=== PATIENT | female | born 1975 | race Caucasian/White ===

== ENCOUNTER → 2017-10-01 12:29 | Outpatient (CLI) | payer OTHER, SELFPAY ==
[2017-10-01 14:16] LABS: Internal QC Validated? YES +Cl - CLEAR BKGD; Pregnancy, Urine Negative Negative
== END ==
PROVIDERS: Visit Provider Physician Assistant
DX: L70.0 Acne vulgaris (principal); Z79.899 Other long term (current) drug therapy
CPT/HCPCS: 81025

== ENCOUNTER → 2017-11-12 16:37 | Outpatient (CLI) | payer OTHER, SELFPAY ==
[2017-11-12 18:15] LABS: Internal QC Validated? YES +Cl - CLEAR BKGD; Pregnancy, Urine Negative Negative
== END ==
PROVIDERS: Visit Provider Physician Assistant
DX: L70.0 Acne vulgaris (principal); Z79.899 Other long term (current) drug therapy
CPT/HCPCS: 81025

== ENCOUNTER → 2017-12-20 11:38 | Outpatient (CLI) | payer OTHER, SELFPAY ==
[2017-12-20 14:14] LABS: Internal QC Validated? YES +Cl - CLEAR BKGD; Pregnancy, Urine Negative Negative
== END ==
PROVIDERS: Visit Provider Physician Assistant
DX: L70.0 Acne vulgaris (principal); Z79.899 Other long term (current) drug therapy
CPT/HCPCS: 81025

== ENCOUNTER → 2018-01-21 10:21 | Outpatient (CLI) | payer OTHER, SELFPAY ==
[2018-01-21 12:03] LABS: Internal QC Validated? YES +Cl - CLEAR BKGD; Pregnancy, Urine Negative Negative
[2018-01-21 12:09] LABS: Absolute Lymphocyte Count 1.72 X10^3/ul (0.83-4.51); Basophil# 0.02 X10^3/uL; Basophil% 0.2 % (0-1); Eosinophil# 0.11 X10^3/uL; Eosinophils% 1.3 % (0-5); Hematocrit 39.6 % (37-47); Hemoglobin 12.8 g/dl (12.0-15.0); Lymphocyte # 1.72 X10^3/ul (4.0); Lymphocyte % 20.6 % (19-41); Mean Corp Hgb Conc 32.3 g/gl (32-36); Mean Corpuscular Hgb 29.7 pg (27.0-32.0); Mean Corpuscular Volume 91.9 fL (81-99); Mean Platelet Vol. 10.4 fl (6.2-12.0); Monocyte# 0.49 X10^3/uL; Monocyte% 5.9 % (0-10); Neutrophil % 71.9 % (47-70); Platelet Count 259 K/mm3 (150-450); RBC Distribution Width CV 13.4 % (11.6-14.6); RBC Distribution Width SD 44.7 fl (35.1-43.9); Red Blood Count 4.31 M/mm3 (4.2-5.4); White Blood Count 8.4 K/mm3 (4.4-11.0)
[2018-01-21 12:11] LABS: POSITIVE COUNT NO; POSITIVE DIFFERENTIAL NO; POSITIVE MORPHOLOGY NO
[2018-01-21 12:20] LABS: AST(SGOT) 18 U/L (15-37); Alanine Aminotransfer ALT/SGPT 22 U/L (13-56); Albumin, Serum 3.9 g/dL (3.2-5.0); Alkaline Phosphatase 75 U/L (45-117); Anion Gap 7 (5-15); BUN 11 mg/dL (7-18); BUN/Creat Ratio 14.1 RATIO (10-20); Calcium,Total 9.4 mg/dL (8.5-10.1); Chloride 102 mmol/L (98-107); Cholesterol 181 mg/dL (200); Creatinine, Serum 0.78 mg/dL (0.55-1.02); EST Glomerular Filtration Rate 87 mL/min (>60); Est Glom Filt Rate - Afr Amer 105 mL/min (>60); Globulin 4.1 g/dL (2.2-4.2); Glucose 85 mg/dL (74-106); High Density Lipoprotein 54 mg/dL; Potassium 3.9 mmol/L (3.5-5.1); Sodium Level 139 mmol/L (136-145); Triglycerides 92 mg/dL; Very Low Density Lipoprotein 18 mg/dL (5-40)
== END ==
PROVIDERS: Referring Provider Physician Assistant; Visit Provider Physician Assistant
DX: L70.0 Acne vulgaris (principal); Z79.899 Other long term (current) drug therapy
CPT/HCPCS: 36415; 80053; 80061; 81025; 85025

== ENCOUNTER → 2018-02-21 11:16 | Outpatient (CLI) | payer OTHER, SELFPAY ==
[2018-02-21 14:43] LABS: Internal QC Validated? YES +Cl - CLEAR BKGD; Pregnancy, Urine Negative Negative
== END ==
PROVIDERS: Referring Provider Physician Assistant; Visit Provider Physician Assistant
DX: L70.0 Acne vulgaris (principal); Z79.899 Other long term (current) drug therapy
CPT/HCPCS: 81025

== ENCOUNTER → 2018-03-31 11:09 | Outpatient (CLI) | payer OTHER, SELFPAY ==
[2018-03-31 12:16] LABS: Internal QC Validated? YES +Cl - CLEAR BKGD
[2018-03-31 12:24] LABS: Pregnancy, Urine Negative Negative
== END ==
PROVIDERS: Referring Provider Dermatology Pediatric Dermatology; Visit Provider Dermatology Pediatric Dermatology
DX: L70.0 Acne vulgaris (principal)
CPT/HCPCS: 81025

== ENCOUNTER → 2018-05-08 11:10 | Outpatient (CLI) | payer OTHER, SELFPAY ==
[2018-05-08 12:54] LABS: Internal QC Validated? YES +Cl - CLEAR BKGD; Pregnancy, Urine Negative Negative
--- OUTSIDE RECORDS SUMMARY | 2018-07-13 02:36 | XMS RPT_ITS ---
:1975 Author Organization OHIP Care Team Providers Name Role Phone RHONDA SCHMID, ELLE CABA Attending Unavailable LETICIA VELASQUEZ MD Primary Care Unavailable DR. RYLEE NIEVES DO Attending Unavailable LETICIA VELASQUEZ MD Primary Care Unavailable VENTURA KIRKLAND Attending Unavailable VENTURA KIRKLAND Referring Unavailable VENTURA KIRKLAND Primary Care Unavailable Yodit Adair Attending Unavailable Yodit Adair Referring Unavailable VENTURA KIRKLAND Primary Care Unavailable Yodit Adair Attending Unavailable VENTURA KIRKLAND Primary Care Unavailable Yodit Adair Attending Unavailable Adair, Yodit Referring Unavailable Primay Care Physicia, No Primary Care Unavailable Adair, Yodit Attending Unavailable Adair, Yodit Referring Unavailable VENTURA KIRKLAND Primary Care Unavailable Adair, Yodit Attending Unavailable Adair, Yodit Referring Unavailable VENTURA KIRKLAND Primary Care Unavailable Josh, Lisy Attending Unavailable Josh, Lisy Referring Unavailable VENTURA KIRKLAND Primary Care Unavailable PROBLEMS PROBLEMS DATE TYPE CONDITION / CODE ATTENDING STATUS SOURCE 05/08/2018 Unknown L70.0 - Acne VENTURA KIRKLAND Active [place] vulgaris / Community L70.0(ICD-10) Hospital Repository 02/06/2018 Admitting Atypical squamous EZEQUIEL DO, [facility] Diagnosis cells cannot exclude DR. MCKEE [facility] high grade squamous Repository intraepithelial lesion on cytologic smear / R87.611(ICD-10) 01/10/2018 Admitting Encounter for RHONDA CABINET WORKER, [facility] Diagnosis gynecological [facility] examination Repository (general) (routine) without abnormal findings / Z01.419(ICD-10) PROCEDURES PROCEDURES No Procedure Records FoundRESULTS RESULTS ,URINE Collected: 05/08/2018 Status: F Source: [place] 11:19 AM [facility] REPOSITORY TYPE CODE TESTS RESULT OUT OF REFERENCE UNITS RANGE LAB L400.8000 Negative Normal HCGUQUAL Negative Result Comment: Very dilute urine specimens, as indicated by a low specific gravity, may not contain customer service representative levels of hCG. If is still suspected, a first morning urine specimen should be collected 48 hours later and tested. Performed By: #### L400.7600 #### [facility] [address] [place], [place], [address] ,URINE Collected: 03/31/2018 Status: F Source: [place] 11:12 AM [facility] REPOSITORY TYPE CODE TESTS RESULT OUT OF REFERENCE UNITS RANGE LAB L400.8000 Negative Normal HCGUQUAL Negative Result Comment: Very dilute urine specimens, as indicated by a low specific gravity, may not contain customer service representative levels of hCG. If is still suspected, a first morning urine specimen should be collected 48 hours later and tested. Performed By: #### L400.7600 #### [facility] [address] [place], [address] ,URINE Collected: 02/21/2018 Status: F Source: [place] 11:20 AM [facility] REPOSITORY TYPE CODE TESTS RESULT OUT OF REFERENCE UNITS RANGE LAB L400.8000 Negative Normal HCGUQUAL Negative Result Comment: Very dilute urine specimens, as indicated by a low specific gravity, may not contain customer service representative levels of hCG. If is still suspected, a first morning urine specimen should be collected 48 hours later and tested. Performed By: #### L400.7600 #### [facility] [address] [place], [address] PROGRESS Observed: 02/20/2018 Status: COMPLETED Source: [place] 10:18 AM [facility] REPOSITORY HNO ID: [id number] Author: Romie Bennett Service: (none) Author Type: Physician Type: Progress Notes Filed: 02/20/2018 4:17 PM Note Text: SUBJECTIVE Barrington Ochoa is a 42 year old female here today for an annual physical. I reviewed her past medical, surgical, social, and family histories today and updated chart. Allergies, chronic medications, and supplements were also reviewed and her list is now up to date. Concern(s) today include: None, feels well, just needs refill for her ambien. She follows with different physician for gynecological exams. She is performing self-breast exams? No Any concerns about her breasts? No Any family history of breast cancer? No No LMP recorded. Are her periods regular? Yes Any concerns about her periods? No Current method of control: None Her medications were reviewed today and her list is now up to date. She is compliant on taking her medications :Yes She is tolerating her medication(s) without side effects: Yes She is trying to eat a balanced diet: Yes She is getting some exercise in: Yes Social History Substance Use Topics - Smoking status: Never Smoker - Smokeless tobacco: Never Used - Alcohol use Yes Comment: 3-4 glasses wine weekly Review of Systems Constitutional: Negative. HENT: Negative. Eyes: Negative. Respiratory: Negative. Cardiovascular: Negative. Gastrointestinal: Negative. Endocrine: Negative. Genitourinary: Negative. Musculoskeletal: Negative. Skin: Negative. Allergic/Immunologic: Negative. Neurological: Negative. Hematological: Negative. Psychiatric/Behavioral: Negative. OBJECTIVE BP 132/85 (BP Site: Left Arm) Pulse 79 Temp 36.5 ?C (97.7 ?F) (Oral) Ht 170.2 cm (5' 7) Wt 88 kg (194 lb) SpO2 98% BMI 30.38 kg/m? Physical Exam Constitutional: She appears well-developed and well-nourished. Cardiovascular: Normal rate, regular rhythm, normal heart sounds and intact distal pulses. Pulmonary/Chest: Effort normal and breath sounds normal. She has no wheezes. She has no rales. Nursing note and vitals reviewed. ASSESSMENT/PLAN: 1. Well woman exam (no gynecological exam) - ICD9: V70.0, ICD10: Z00.00 (primary diagnosis) - Recommended regular aerobic exercise. - Discussed need and benefit for weight loss. BMI 30.38 kg/(m2) - Follow up for annual exam in one year. 2. Chronic insomnia - ICD9: 780.52, ICD10: F51.04 - ZOLPIDEM 5 MG TABLET 3. 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 Anxiety and depression - ICD9: 300.00, 311, ICD10: F41.9, F32.9 5. Gastroesophageal reflux disease, esophagitis presence not specified - ICD9: 530.81, ICD10: K21.9 6. Chronic seasonal allergic rhinitis - ICD9: 477.8, ICD10: J30.2 Romie Bennett MD CNOV Observed: 02/20/2018 Status: COMPLETED Source: [place] 10:00 AM [facility] REPOSITORY Office Visit (FMUPCE) BARRINGTON OCHOA ([id number]) 1975 F Date Time Provider Department 02/20/18 10:00 AM ROMIE BENNETT FMJAY During your visit today, we recorded the following information about you: Temperature Pulse Blood pressure Weight 97.7 degrees 79/minute 132/85 88 kg Height 1.702 m Romie Bennett MD 02/20/2018 4:17 PM Signed SUBJECTIVE Barrington Ochoa is a 42 year old female here today for an annual physical. I reviewed her past medical, surgical, social, and family histories today and updated chart. Allergies, chronic medications, and supplements were also reviewed and her list is now up to date. Concern(s) today include: None, feels well, just needs refill for her ambien. She follows with different physician for gynecological exams. She is performing self-breast exams? No Any concerns about her breasts? No Any family history of breast cancer? No No LMP recorded. Are her periods regular? Yes Any concerns about her periods? No Current method of control: None Her medications were reviewed today and her list is now up to date. She is compliant on taking her medications :Yes She is tolerating her medication(s) without side effects: Yes She is trying to eat a balanced diet: Yes She is getting some exercise in: Yes Social History Substance Use Topics - Smoking status: Never Smoker - Smokeless tobacco: Never Used - Alcohol use Yes Comment: 3-4 glasses wine weekly Review of Systems Constitutional: Negative. HENT: Negative. Eyes: Negative. Respiratory: Negative. Cardiovascular: Negative. Gastrointestinal: Negative. Endocrine: Negative. Genitourinary: Negative. Musculoskeletal: Negative. Skin: Negative. Allergic/Immunologic: Negative. Neurological: Negative. Hematological: Negative. Psychiatric/Behavioral: Negative. OBJECTIVE BP 132/85 (BP Site: Left Arm) Pulse 79 Temp 36.5 ?C (97.7 ?F) (Oral) Ht 170.2 cm (5' 7) Wt 88 kg (194 lb) SpO2 98% BMI 30.38 kg/m? Physical Exam Constitutional: She appears well-developed and well-nourished. Cardiovascular: Normal rate, regular rhythm, normal heart sounds and intact distal pulses. Pulmonary/Chest: Effort normal and breath sounds normal. She has no wheezes. She has no rales. Nursing note and vitals reviewed. ASSESSMENT/PLAN: 1. Well woman exam (no gynecological exam) - ICD9: V70.0, ICD10: Z00.00 (primary diagnosis) - Recommended regular aerobic exercise. - Discussed need and benefit for weight loss. BMI 30.38 kg/(m2) - Follow up for annual exam in one year. 2. Chronic insomnia - ICD9: 780.52, ICD10: F51.04 - ZOLPIDEM 5 MG TABLET 3. 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 Anxiety and depression - ICD9: 300.00, 311, ICD10: F41.9, F32.9 5. Gastroesophageal reflux disease, esophagitis presence not specified - ICD9: 530.81, ICD10: K21.9 6. Chronic seasonal allergic rhinitis - ICD9: 477.8, ICD10: J30.2 Romie Bennett MD Referring Provider: SELF [200] Allergies As of Date: 02/20/2018 Noted Allergy Reaction POLLENS EXTRACT 02/14/2018 16 - Unknown Date Reviewed: 02/20/2018 Reviewed by: Vicki Gloria - Fully Assessed Reason for Visit: Yearly Exam [187] Primary Visit Diagnosis:Well woman exam (no gynecological exam) [Z00.00] Other Visit Diagnoses:Chronic insomnia [F51.04] Shift work sleep disorder [G47.26] Anxiety and depression [F41.9, F32.9] Gastroesophageal reflux disease, esophagitis presence not specified [K21.9] Chronic seasonal allergic rhinitis [J30.2] Order(s):citalopram hydrobromide (CELEXA) 10 mg tabletTake 1 tablet by mouth once daily.Disp: 30 tabletRfl: 5 zolpidem (AMBIEN) 5 mg tabletTake 1 tablet by mouth at bedtime as needed for up to 30 days.Disp: 30 tabletRfl: 2 fluticasone (FLONASE) 50 mcg/actuation nasal sprayUse 1 [place] in each nostril once daily.Disp: 1 BottleRfl: 5 INFLUENZA VACCINE QUADRIVALENT AGE 3 YRS PLUS + IM [[id number]] Order #: [id number] Prescriptions as of 02/20/2018 Sig: LORATADINE 10 MG TABLET Take 10 mg by mouth as needed. CHOLECALCIFEROL (VITAMIN D3) * Take 5,000 Units by mouth onc* VITAMIN D (WITH CALCIUM) ORAL Take by mouth once daily. CITALOPRAM 10 MG TABLET Take 1 tablet by mouth once d* ZOLPIDEM 5 MG TABLET Take 1 tablet by mouth at bed* FLUTICASONE 50 MCG/ACTUATION * Use 1 [place] in each nostril o* MYORISAN 40 MG CAPSULE TAKE 1 CAPSULE ONCE DAILY wit* LO LOESTRIN FE 1 MG-10 MCG (2* Take 1 tablet by mouth once d* SPIRONOLACTONE 100 MG TABLET Take 100 mg by mouth once dov* SULFACETAMIDE SODIUM (ACNE) 1* Apply to the affected areas o* Problem List As Of Date 02/20/2018 Noted Resolved Shift work sleep disorder [G47.26] Anxiety and depression [F41.9, F32.9] GERD (gastroesophageal reflux disease) [K21.9] Chronic seasonal allergic rhinitis [J30.2] Prescriptions ordered this encounter Disp Refills Start End CITALOPRAM 10 MG TABLET 30 t* 5 02/20/2018 Route: ORAL Sig: Take 1 tablet by mouth once daily. ZOLPIDEM 5 MG TABLET 30 t* 2 02/20/2018 03/22/2018 Class: Print RX Route: ORAL Sig: Take 1 tablet by mouth at bedtime as needed for up to 30 days. FLUTICASONE 50 MCG/ACTUATION NASAL S* 1 [place]* 5 02/20/2018 Route: EACH NOSTRIL Sig: Use 1 [place] in each nostril once daily. Medications Discontinued During This Encounter citalopram hydrobromide (CELEXA) 10 * 5 02/09/2018 02/20/2018 Class: Historical Med Route: ORAL Sig: Take 10 mg by mouth once daily. Disc: Reason for discontinue is not on file. zolpidem (AMBIEN) 5 mg tablet 02/20/2018 Class: Historical Med Route: ORAL Sig: Take 5 mg by mouth at bedtime as needed. Disc: Reason for discontinue is not on file. fluticasone (FLONASE) 50 mcg/actuati* 5 10/25/2017 02/20/2018 Class: Historical Med Sig: use 1 spray in each nsotril once daily as needed Disc: Reason for discontinue is not on file. Disposition: Return in about 6 months (around 08/20/2018) for Insomnia. Follow-up and Disposition History Recorded Encounter Status:Closed by ROMIE BENNETT MD on 02/20/18 FINAL SURGICAL Observed: 02/06/2018 Status: F Source: [facility] PATHOLOGY REPORT 1:15 PM [facility] REPOSITORY . Pathology Reports Accession: Collected Date/Time: Received Date/Time: Pathologist: [id number] 02/06/2018 13:15 EDT 02/06/2018 13:34 EDT MD RADHA BERRY Final Surgical Pathology Report DIAGNOSIS: A) ENDOCERVIX, CURETTAGE: MUCUS AND FRAGMENTS OF ENDOCERVICAL TISSUE WITH NO SPECIFIC PATHOLOGIC CHANGES. B) CERVIX, BIOPSY: ACUTE INFLAMMATION AND KOILOCYTIC ATYPIA SUGGESTIVE BUT NOT DIAGNOSTIC OF CONDYLOMA. CLINICAL INFORMATION: ATYPICAL SQUAMOUS CELLS SPECIMEN: A ECC B CERVIX, BX GROSS DESCRIPTION: A) Received in formalin and consists of multiple pale-perea fragments of mucus measuring in aggregate 0.6 x 0.4 x 0.2 cm. TE-1 B) Received in formalin and consists of a pale-perea fragment of mucosa measuring 0.2 cm. TE-1 dictated by Shaan Berry M.D. Dictated by RADHA BERRY MD MICROSCOPIC DESCRIPTION: A&B) Slides reviewed. Electronically Signed by Pathology Report verified by [facility] Electronically signed by RADHA BERRY MD Sign out Date: 02/07/2018 13:25 Performing Lab: [address] Performed By: #### SPFR #### [place] [address] ,URINE Collected: 01/21/2018 Status: F Source: [place] 10:53 AM [facility] REPOSITORY TYPE CODE TESTS RESULT OUT OF REFERENCE UNITS RANGE LAB L400.8000 Negative Normal HCGUQUAL Negative Result Comment: Very dilute urine specimens, as indicated by a low specific gravity, may not contain customer service representative levels of hCG. If is still suspected, a first morning urine specimen should be collected 48 hours later and tested. Performed By: #### L400.7600 #### [facility] [address] [place], [address] CBC W/DIFF, AUTOMATED Collected: 01/21/2018 Status: F Source: [place] 10:53 AM [facility] REPOSITORY TYPE CODE TESTS RESULT OUT OF RANGE REFERENCE UNITS LAB L100.1000 4.4-11.0 K/mm3 Normal WBC 8.4 LAB L100.1200 4.2-5.4 M/mm3 Normal RBC 4.31 LAB L100.1300 12.0-15.0 g/dl Normal HGB 12.8 LAB L100.1400 37-47 % Normal HCT 39.6 LAB L100.1500 81-99 fL Normal MCV 91.9 LAB L100.1600 27.0-32.0 pg Normal MCH 29.7 LAB L100.1700 32-36 g/gl Normal MCHC 32.3 LAB L100.1810 11.6-14.6 % Normal RDW CV 13.4 LAB L100.1820 35.1-43.9 fl High RDW SD 44.7 LAB L100.1900 150-450 K/mm3 Normal PLT 259 LAB L100.2000 6.2-12.0 fl Normal MPV 10.4 LAB L100.2100 47-70 % High NEUT% 71.9 LAB L100.2200 19-41 % Normal LY% 20.6 LAB L100.2300 0-10 % Normal MONO% 5.9 LAB L100.2400 0-5 % Normal EO% 1.3 LAB L100.2500 0-1 % Normal BASO% 0.2 LAB L100.2550 0.0-0.9 % Normal IM GRAN % 0.100 Result Comment: IG% - Immature Granulocytes (promyelocytes, myelocytes and metamyelocytes) > 1% indicates that a LEFT SHIFT is Present. LAB L100.2620 2.0-7.7 X10 3/uL Normal Absolute Neut 6.0 LAB L100.2720 0.83-4.51 X10 3/ul Normal Absolute Lymph 1.72 Performed By: #### L100.0100 #### [facility] [address] [place] [address]. [place], [place], [id number] COMPREHENSIVE METABOLIC Collected: 01/21/2018 Status: F Source: [place] 10:53 AM [facility] REPOSITORY TYPE CODE TESTS RESULT OUT OF RANGE REFERENCE UNITS LAB L501.0100 74-106 mg/dL Normal GLU 85 Result Comment: Please note revised GLUCOSE reference range effective 2017. LAB L501.1000 7-18 mg/dL Normal BUN 11 LAB L501.1100 0.55-1.02 mg/dL Normal CREAT,SERUM 0.78 Result Comment: The validity of the calculated GFR AND GFRAA in patients over 70 years has not been determined. Clinical correlation is essential. LAB L501.1110 >60 mL/min Normal EST GFR 87 Result Comment: Non- GFR Calc LAB L501.1115 >60 mL/min Normal EST GFR - AA 105 Result Comment: GFR Calc LAB L501.1300 10-20 RATIO Normal BUN/CRE 14.1 LAB L501.1500 6.4-8.2 g/dL T Normal PROT 8.0 LAB L501.1800 3.2-5.0 g/dL Normal ALB 3.9 LAB L501.1950 2.2-4.2 g/dL Normal GLOB 4.1 LAB L501.2000 0.9-2.4 RATIO Normal A/G 1.0 LAB L501.2200 8.5-10.1 mg/dL CA Normal 9.4 LAB L501.4100 15-37 U/L Normal AST 18 LAB L501.4305 45-117 U/L Normal ALK P 75 LAB L501.4405 13-56 U/L Normal ALT 22 LAB L501.4600 0.20-1.00 mg/dL T Normal BILI 0.20 LAB L501.5300 136-145 mmol/L NA Normal 139 LAB L501.5600 3.5-5.1 mmol/L K Normal 3.9 LAB L501.5900 98-107 mmol/L CL Normal 102 LAB L501.6100 21.0-32.0 mmol/L Normal CO2 30.0 LAB L501.6200 5-15 Normal GAP 7 Performed By: #### L500.4050, L500.4100 #### [facility] [address] [place], [place], [address] LIPID PROFILE Collected: 01/21/2018 Status: F Source: [place] 10:53 AM [facility] REPOSITORY TYPE CODE TESTS RESULT OUT OF RANGE REFERENCE UNITS LAB L501.4900 200 mg/dL Normal CHOL 181 Result Comment: <200 mg/dL Desirable 200-240 mg/dL Borderline >240 mg/dL High Risk LAB L501.5000 mg/dL Normal TRIG 92 Result Comment: The drugs N-Acetylcysteine and Metamizole may falsely depress this assay. Serum Triglycerides Reference Interval Normal <150 mg/dL Borderline high 150 - 199 mg/dL High 200 - 499 mg/dL Very High > or = 500 mg/dL LAB L501.6400 mg/dL Normal HDL 54 Result Comment: The drugs N-Acetylcysteine and Metamizole may falsely depress this assay. Reference Range HDL <40 mg/dL Low HDL Cholesterol HDL >or= 60 mg/dL High HDL Cholesterol LAB L501.6500 0-130 mg/dL Normal LDL 109 LAB L501.6600 5-40 mg/dL Normal VLDL 18 Performed By: #### L500.4050, L500.4100 #### [facility] [address] [place], [address] MARKETING FINANCE MANAGER CYTOLOGY REPORT Observed: 01/10/2018 Status: F Source: [facility] 9:56 AM [facility] REPOSITORY . Pathology Reports Accession: Collected Date/Time: Received Date/Time: Pathologist: [id number] 01/10/2018 09:56 EDT 01/10/2018 18:00 EDT MD RADHA BERRY [employer] Assembly Supervisor Cytology Report SPECIMEN: Specimen Description: Liquid Prep w/ HPV Specimen: Cervical/Endocervical Screening or Diagnostic: Screening RELEVANT HISTORY: LMP: 12/29/2017 SPECIMEN ADEQUACY: SATISFACTORY FOR EVALUATION ENDOCERVICAL/TRANSFORMATIONAL ZONE COMPONENT PRESENT INTERPRETATION/RESULTS: LOW GRADE SQUAMOUS INTRAEPITHELIAL LESION ADJUNCTIVE TESTING: HIGH RISK HPV DNA TESTING ORDERED, REPORT TO FOLLOW UNDER SEPARATE COVER Electronically Signed by Pathology report verified by [facility] Screened by: ANNALISA Electronically signed by RADHA BERRY MD Sign-Out Date: 01/17/2018 14:38 Performing Lab: [facility], [address] [place] [address] Disclaimer The Pap test is a screening test for cervical cancer. As evidenced by published data, it is subject to both inherent false negative and false positive results. Your patient's results should be interpreted in context with pertinent clinical history including gynecological examination. Performed By: #### GYCR #### [place] [address] HPV Collected: 01/10/2018 Status: F Source: [facility] 9:56 AM [facility] REPOSITORY Order Comment: Order placed by AP_HPV_ORDER rule from [id number] TYPE CODE TESTS RESULT OUT OF REFERENCE UNITS RANGE LAB BFHPV(LOINC ) HPV Source Cervix LAB HPVINT(LOIN See Interp HPVN C) HPV Interp Result Comment: High Risk HPV Typing: NEGATIVE HPV types 16, 18, 31, 33, 35, 39, 45, 51, 52, 56, 58, 59, 66 and 68 DNA were undetectable or below the pre-set threshold. The eliceo High-Risk HPV DNA Test is not intended for use as a screening device for Pap normal women under age 30 and is not intended to substitute for regular Pap screening. The eliceo High-Risk HPV DNA Test is designed to augment existing methods for the detection of cervical disease and should be used in conjunction with clinical information derived from other diagnostic and screening tests, physical examinations and full medical history in accordance with appropriate patient management procedures. NOTE: A negative result does not preclude the presence of HPV infection because results depend on adequate specimen collection, absence of inhibitors and sufficient DNA to be detected. See [facility] HPVN Performed By: #### HPV #### [place] [address] ,URINE Collected: 12/20/2017 Status: F Source: [place] 11:43 AM [facility] REPOSITORY Order Comment: PER PT: PATIENT TO RETURN FOR BLOODWORK; PATIENT COLLECTED PREGU ONLY 12/20/17 TYPE CODE TESTS RESULT OUT OF REFERENCE UNITS RANGE LAB L400.8000 Negative Normal HCGUQUAL Negative Result Comment: Very dilute urine specimens, as indicated by a low specific gravity, may not contain customer service representative levels of hCG. If is still suspected, a first morning urine specimen should be collected 48 hours later and tested. Performed By: #### L400.7600 #### [facility] [address] [place], [place], [id number] ,URINE Collected: 11/12/2017 Status: F Source: [place] 4:38 PM [facility] REPOSITORY TYPE CODE TESTS RESULT OUT OF REFERENCE UNITS RANGE LAB L400.8000 Negative Normal HCGUQUAL Negative Result Comment: Very dilute urine specimens, as indicated by a low specific gravity, may not contain customer service representative levels of hCG. If is still suspected, a first morning urine specimen should be collected 48 hours later and tested. Performed By: #### L400.7600 #### [facility] [address] [place], [place], [id number] ,URINE Collected: 10/01/2017 Status: F Source: [place] 12:41 PM [facility] REPOSITORY TYPE CODE TESTS RESULT OUT OF REFERENCE UNITS RANGE LAB L400.8000 Negative Normal HCGUQUAL Negative Result Comment: Very dilute urine specimens, as indicated by a low specific gravity, may not contain customer service representative levels of hCG. If is still suspected, a first morning urine specimen should be collected 48 hours later and tested. Performed By: #### L400.7600 #### [facility] [address] [place], [address] ALLERGIES ALLERGIES No Allergies Records FoundENCOUNTERS ENCOUNTERS ADMIT/DISCHARGE ACCOUNT NUMBER ADMITTING ENCOUNTER LOCATION SOURCE CLASS 05/08/2018 [id number] [facility] ding:[facility] Repository 03/31/2018 [id number] [facility] ding:[facility] Repository 02/21/2018 [id number] [facility] ding:[facility] Repository 02/06/2018/02/11/20 [id number] [place] [address] [facility] management professional Repository 01/21/2018 [id number] [facility] ding:[facility]LAB Repository 01/10/2018/01/15/20 [id number] [place] [address] [facility] management professional Repository 12/20/2017 [id number] [facility] ding:[facility] Repository 11/12/2017 [id number] [facility] ding:[facility] Repository 10/01/2017 [id number] [facility] ding:[facility] Repository PAYERS PAYERS ENCOUNTER GUARANTOR PAYER SUBSCRIBER SOURCE 05/08/2018 [place] [facility] [facility] icy [place]: [id number] [id number] Repository [address]Fid: [phone] e Date:[id number] [phone] () [address], [place] [address]XY: 05/08/2018 Secondary NOT GIVENUNK [place] Insurance:SELF PAY [facility] Number: Effective Repository Date:2018-05-08 03/31/2018 BARRINGTON Clark [id number] [place] Insurance:AULTCAREPol CONNERDOB: Community [facility] icy Number: [id number], [place] [id number] Repository [address]Rsy: [phone]) Date:[id number] [phone] () [place], [place] [address]JT: 03/31/2018 Secondary NOT GIVENUNK [place] Insurance:SELF PAY [facility] Number: Effective Repository Date:2018-03-31 02/21/2018 BARRINGTON Clark [id number] ACKEY Insurance:AULTCAREPol CONNERDOB: [facility] icy Number: [id number], [place] [id number] Repository [address]Vwj: ([phone]) Date:2027-06-89[phone] () [address], [place] [address]SC: 02/21/2018 Secondary NOT GIVENUNK [place] Insurance:SELF PAY [facility] Number: Effective Repository Date:2018-02-21 02/06/2018 [facility] [facility]AULTCARE - [facility] HEALTHERDOB: [facility] [id number] Number: [id number] Repository [facility] [id number] [place], [place] Date:2018-02-06 - [place], [place] [address]Eue: [id number] [phone]: Name:[facility] AMANDA [phone] ()Tel: [phone], [place] () (wp) [phone]: ([phone]) [phone] 01/21/2018 BARRINGTON Clark [id number] ACKEY Insurance:AULTCAREPol CONNERDOB: [facility] icy Number: [id number], [place] [id number] Repository [phone]: ([phone]) Date:8745-32-33KD [phone] () [address], [place] [address]IY: 01/21/2018 Secondary NOT GIVENUNK Amber Insurance:SELF PAY [facility] Number: Effective Repository Date:2018-01-21 01/10/2018 BARRINGTON Edmond Primary [facility]:AULTCARE - CONNERDOB: [facility] N37Jfirus Number: [id number] [facility]ository [facility] [id number] [place], [place] Date:2018-01-10 [place], [place] [address]Meo: [phone] [id number]: Name:[facility] [phone] ()Tel: [phone] [address], [place] () (WP) [phone]: (wp) [phone] 12/20/2017 BARR[place] Edmond Primary BARRINGTON Clark [id number] [place] Insurance:AULTCAREPol CONNERDOB: [facility] icy Number: [id number], [place] [id number] Repository [address]Hux: ([phone]) Date:0464-27-68TN [phone] () [address], [place] [address]PR: 12/20/2017 Secondary NOT GIVENUNK [place] Insurance:SELF PAY [facility] Number: Effective Repository Date:2017-12-20 11/12/2017 BARR[place] Edmond Primary BARRINGTON Clark [id number] [place] Insurance:AULTCAREPol CONNERDOB: [facility] icy Number: [id number], [place] [id number] Repository [address]Ogu: ([phone]) Date:3145-28-77[phone] () [address], [place] [address]MT: 11/12/2017 Secondary NOT GIVENUNK [place] Insurance:SELF PAY [facility] Number: Effective Repository Date:2017-11-12 10/01/2017 BARR[place] Edmond Primary BARRINGTON Clark [id number] [facility] CONNERDOB: [facility] icy Number: [id number], [place] [id number] Repository [address]Yqq: ([phone]) Date:1630-68-29ES [phone] () [address], [place] [address]PN: 10/01/2017 Secondary NOT GIVENUNK [place] Insurance:SELF PAY [facility] Number: Effective Repository Date:2017-10-01
== END ==
DX: L70.0 Acne vulgaris (principal); Z79.899 Other long term (current) drug therapy
CPT/HCPCS: 81025